=== PATIENT | female | born 1985 | race Caucasian/White ===

== ENCOUNTER → 2017-07-29 | Outpatient (CLI) | payer BC ==
--- NOTE | 2017-07-29 13:40 | Diagnostic Imaging Report ---
INDICATION: Right-sided pelvic pain. TECHNIQUE: Multiple real-time grayscale images were obtained of the pelvis in various projections endovaginally. Transabdominal imaging was also performed. FINDINGS: The uterus measures 7.7 x 3.8 x 4.0 cm. The endometrium is 14 mm in thickness. No myometrial mass is detected. The left ovary is obscured by bowel gas. The right ovary measures 2.7 x 3.0 x 1.5 cm. There is an area of slightly increased echogenicity involving the right ovary measuring 1.8 x 1.2 x 1.5 cm. This could be a fat-containing lesion such as a dermoid. No other adnexal mass is seen. There is no free fluid. IMPRESSION: Essentially unremarkable transabdominal and transvaginal pelvic ultrasound apart from a mildly hyperechoic mass in the right ovary. Follow-up could be performed to confirm stability. Remainder of the study is unremarkable. Dictated by: Dictated on workstation # [id number]
== END ==
LOC: RAD 12:23
PROVIDERS: ATTEND Nurse Practitioner Family
DX: N83.9 Noninflammatory disorder of ovary, fallopian tube and broad ligament, unspecified (principal)
CPT/HCPCS: 76830; 76856

== ENCOUNTER → 2017-12-27 | Outpatient (CLI) | payer BC ==
--- NOTE | 2017-12-27 16:01 | Diagnostic Imaging Report ---
INDICATION: History of possible dermoid cyst in the right ovary. TECHNIQUE: Multiple real-time grayscale sonographic images were obtained of the pelvis transabdominally and transvaginally. CORRELATION STUDY: 07/29/2017. FINDINGS: UTERUS/ENDOMETRIUM: Uterus measures 6.8 x 4.1 x 3.5 cm. Endometrial thickness is 3 mm. The uterus and endometrium appearing unremarkable. RIGHT OVARY: 2.7 x 2.5 x 2.4 cm. Previous imaging demonstrated somewhat of a hyperechoic mass in the right ovary. This cannot be well appreciated or distinguish on the current study. It is somewhat indeterminate. Additional adnexal mass lesion on the right not otherwise suggested. LEFT OVARY: 3.3 x 2.6 x 3.7 cm. Hypoechoic mass compatible with cyst with slightly irregular margins measuring 3.5 x 2.9 x 2.4 cm is present. No significant free pelvic fluid. Blood flow present to both ovaries. IMPRESSION: 1. A previously questioned hyperechoic mass in the right adnexa is not well defined on current study. This finding is indeterminate. If there are symptoms, however, referable to this area, correlation with CT imaging would be recommended. 2. Development of a slightly complex 3.5 cm left ovarian cyst. Dictated by: Dictated on workstation # [id number]
== END ==
LOC: RAD 14:45
PROVIDERS: ATTEND Nurse Practitioner
DX: D27.0 Benign neoplasm of right ovary (principal)
CPT/HCPCS: 76830; 76856